=== PATIENT | female | born 1990 | race Caucasian/White ===

== ENCOUNTER 2017-04-06 16:47 | Emergency (ER) | END 2017-04-06 23:14 | disposition home or self-care (01) ==

== ENCOUNTER 2017-06-17 19:29 | Emergency (ER) | END 2017-06-17 20:00 | disposition home or self-care (01) ==

== ENCOUNTER 2018-05-21 22:32 | Emergency (ER) | payer OTHER ==
[~2018-05-21] VITALS: Wt 71.6 kg
[~2018-05-21 22:32] MED LIST: BACI28.34 TOP; FIORICET PO; HC30CR25 TOP; NAPR-985 PO; ONDA4TAB8 PO
[2018-05-21 22:46] VITALS: BP 128/88; PULSE 77; RESP 18
[2018-05-21] MEDS ORDERED: ACETAMINOPHEN 325 MG TAB PO ONE (23:00)
[2018-05-21] MEDS ORDERED: DEXAMETHASONE 4 MG TAB PO ONE (23:00)
[2018-05-21] MEDS ORDERED: D-ME473S2 PO (23:18)
[2018-05-21] MEDS ORDERED: IBUP-1542 PO (23:18)
[2018-05-21] MEDS ORDERED: AMOX500C2 PO (23:18)
--- NOTE | 2018-05-21 23:20 | ERD ---
ER Documentation Chief Complaint Chief Complaint R EAR PAIN, THROAT PAIN X'S 20 DAYS HPI 28-year-old female presents with a 2-week history of sore throat and bilateral ear pain. She may have had tactile fevers but no measured temperature. She denies significant cough, vomiting, chest pain, additional symptoms. ROS All systems reviewed and are negative except as per history of present illness. Medications Home Meds Active Scripts Ibuprofen* (Motrin*) 600 Mg Tab, 600 MG PO Q6, #15 TAB Prov:CAMRON RHODES MD 05/21/18 Dextromethorphan Hb-Promethazine Hcl* (Promethazine DM* Syrup) 473 Ml Syrup, 5 ML PO Q6 PRN for COUGH for 5 Days, ML Prov:CAMRON RHODES MD 05/21/18 Amoxicillin* (Amoxicillin*) 500 Mg Cap, 500 MG PO TID for 10 Days, CAP Prov:CAMRON RHODES MD 05/21/18 Bacitracin* (Bacitracin Zinc Oint*) 28.35 Gm Oint, 1 APPLIC TOP BID, #1 TUB APPLI TO Prov:NAVI VARGAS PA-C 06/17/17 Hydrocortisone* Topical (Hydrocortisone* Topical) 2.5%-28.3 Gm Cream..g., 1 APPLIC TOP BID, #1 TUB Prov:NAVI VARGAS PA-C 06/17/17 Naproxen* (Naprosyn*) 500 Mg Tablet, 500 MG PO BID PRN for PAIN AND/OR INFLAMMATION, #30 TAB Prov:JESSA CIFUENTES PA-C 04/06/17 Ondansetron Hcl* (Zofran*) 4 Mg Tablet, 4 MG PO Q6H for NAUSEA AND/OR VOMITING, #30 TAB Prov:JESSA CIFUENTES PA-C 04/06/17 Acetamin/Butalbital/Caffeine* (Fioricet*) [id number] Tab, 1 TAB PO Q6H PRN for PAIN, #30 TAB Prov:JESSA CIFUENTES PA-C 04/06/17 Allergies Allergies: Coded Allergies: No Known Drug Allergies (Verified Allergy, Unknown, 12/25/15) PMhx/Soc Medical and Surgical Hx: pt denies Medical Hx History of Surgery: Yes (APPENDECTOMY, TUBAL LIGATION) Anesthesia Reaction: No Hx Neurological Disorder: No Hx Respiratory Disorders: No Hx Cardiac Disorders: No Hx Psychiatric Problems: No Hx Miscellaneous Medical Probl: No Hx Alcohol Use: No Hx Substance Use: No Hx Tobacco Use: No FmHx Family History: No diabetes, No coronary disease, No other Physical Exam Vitals Vital Signs Date Temp Pulse Resp B/P (MAP) Pulse Ox O2 O2 Flow FiO2 Time Delivery Rate 05/21/18 98.4 77 18 128/88 98 22:46 (101) Physical Exam Const: No acute distress Head: Atraumatic Eyes: Normal Conjunctiva ENT: Normal External Ears, Nose and Mouth. 3+ with erythema but no exudate. Uvula midline. Tender anterior cervical lymph nodes. TMs normal. No mastoid tenderness. Neck: Full range of motion. No meningismus. Resp: Clear to auscultation bilaterally Cardio: Regular rate and rhythm, no murmurs Abd: Soft, non tender, non distended. Normal bowel sounds Skin: No petechiae or rashes Back: No midline or flank tenderness Ext: No cyanosis, or edema Neur: Awake and alert Psych: Normal Mood and Affect Results 24 hrs Current Medications Medications Dose Sig/Rosana Start Time Status Last (Trade) Ordered Route PRN Stop Time Admin Dose Reason Admin 650 mg ONCE ONCE 05/21/18 DC 05/21/18 Acetaminophen PO 23:00 05/21/18 23:14 (Tylenol 23:01 Tab) 8 mg ONCE ONCE 05/21/18 DC 05/21/18 Dexamethasone PO 23:00 05/21/18 23:13 (Decadron) 23:01 Procedures/MDM Patient presents with sore throat lymphadenitis. Given the duration will treat with 1 dose Decadron, amoxicillin, ibuprofen, primary care follow-up and return precautions. The patient was stable with no new complaints during the ER course. Clinically, there is no current evidence to suggest meningitis, sepsis, acute abdomen, pneumonia, stroke, acute coronary syndrome, pulmonary embolism, aortic dissection or any other emergent condition appearing to require further evaluation or hospitalization. Patient counseled regarding my diagnostic impre ssion and care plan. Prior to discharge all questions answered. Pt agrees with treatment plan and understands strict return precautions. Pt is instructed to follow up with primary care provider within 24-48 hours. Precautionary instructions provided including instructions to return to the ER if not improving or for any worsening or changing symptoms or concerns. There is no evidence of airway obstruction or abscess. Departure Diagnosis: Primary Impression: URI, acute Condition: Stable Patient Instructions: Lymphangitis, Pharyngitis, Strep (Presumed) Additional Instructions: Recheck for new or worsening symptoms her primary care doctor. CAMRON RHODES MD May 21, 2018 23:20
== END 2018-05-22 00:58 | disposition home or self-care (01) ==
LOC: FTE 22:32
DX: J06.9 Acute upper respiratory infection, unspecified (principal)
CPT/HCPCS: Z7502; Z7610; 99283

== ENCOUNTER 2018-10-24 03:52 | Emergency (ER) | payer OTHER ==
[~2018-10-24] VITALS: Ht 160 cm; Wt 68.7 kg
[~2018-10-24 03:52] MED LIST changes: +AMOX500C2 PO; +AZIT250T PO; +BENZ-6 PO; +D-ME473S2 PO; +IBUP-1542 PO
[2018-10-24 03:53] VITALS: BP 97/56; PULSE 79; RESP 18; Ht 160 cm; Wt 68.7 kg
[2018-10-24] MEDS ORDERED: ALBUTEROL 0.083% (NEB) 2.5 MG/3 ML AMP NEB STA (04:11)
[2018-10-24] MEDS ORDERED: IPRATROPIUM (NEB) 0.5 MG/2.5 ML AMP NEB STA (04:11)
--- NOTE | 2018-10-24 04:18 | ERD ---
ER Documentation Chief Complaint Chief Complaint COUGH WITH CWP [id number] HPI Patient is a 28-year-old female, no past medical history, presents the ER for concerns of a cough for the last 10 days. Patient states cough is dry in nature. Patient denies any shortness of breath. She states she occasionally has chest pain with coughing only. Patient denies any chest pain at rest. Patient denies any radiation of pain. Patient denies any nausea, vomiting, fevers, chills, abdominal pain or LOC. Patient states she tried numerous [id number] cough syrups with no alleviation of symptoms. Patient states presents the ER as she was unable to sleep throughout the night secondary to coughing. ROS All systems reviewed and are negative except as per history of present illness. Medications Home Meds Active Scripts Dextromethorphan Hb-Promethazine Hcl* (Promethazine DM* Syrup) 473 Ml Syrup, 5 ML PO Q6 PRN for COUGH, #4 OZ Prov:TOYA LU PA-C 10/24/18 Azithromycin* (Zithromax*) 250 Mg Tablet, 250 MG PO .ZPACK DIRECTED, #6 TAB TAKE 500 MG (2 TABS) THE FIRST DAY THEN 250 MG (1 TAB) DAYS 2-5 Prov:TOYA LU PA-C 10/24/18 Benzonatate* (Tessalon Perle*) 100 Mg Capsule, 100 MG PO Q8H PRN for COUGH, #30 CAP Prov:TOYA LU PA-C 10/24/18 Ibuprofen* (Motrin*) 600 Mg Tab, 600 MG PO Q6, #15 TAB Prov:CAMRON RHODES MD 05/21/18 Dextromethorphan Hb-Promethazine Hcl* (Promethazine DM* Syrup) 473 Ml Syrup, 5 ML PO Q6 PRN for COUGH for 5 Days, ML Prov:CAMRON RHODES MD 05/21/18 Amoxicillin* (Amoxicillin*) 500 Mg Cap, 500 MG PO TID for 10 Days, CAP Prov:CAMRON RHODES MD 05/21/18 Bacitracin* (Bacitracin Zinc Oint*) 28.35 Gm Oint, 1 APPLIC TOP BID, #1 TUB APPLI TO Prov:NAVI VARGAS PA-C 06/17/17 Hydrocortisone* Topical (Hydrocortisone* Topical) 2.5%-28.3 Gm Cream..g., 1 APPLIC TOP BID, #1 TUB Prov:NAVI VARGAS PA-C 06/17/17 Naproxen* (Naprosyn*) 500 Mg Tablet, 500 MG PO BID PRN for PAIN AND/OR INFLAMMATION, #30 TAB Prov:JESSA CIFUENTES PA-C 04/06/17 Ondansetron Hcl* (Zofran*) 4 Mg Tablet, 4 MG PO Q6H for NAUSEA AND/OR VOMITING, #30 TAB Prov:JESSA CIFUENTES PA-C 04/06/17 Acetamin/Butalbital/Caffeine* (Fioricet*) [id number] Tab, 1 TAB PO Q6H PRN for PAIN, #30 TAB Prov:JESSA CIFUENTES PA-C 04/06/17 Allergies Allergies: Coded Allergies: No Known Drug Allergies (Verified Allergy, Unknown, 12/25/15) PMhx/Soc History of Surgery: Yes (APPENDECTOMY, TUBAL LIGATION) Anesthesia Reaction: No Hx Neurological Disorder: No Hx Respiratory Disorders: No Hx Cardiac Disorders: No Hx Psychiatric Problems: No Hx Miscellaneous Medical Probl: No Hx Alcohol Use: No Hx Substance Use: No Hx Tobacco Use: No FmHx Family History: No diabetes Physical Exam Vitals Vital Signs Date Temp Pulse Resp B/P (MAP) Pulse Ox O2 O2 Flow FiO2 Time Delivery Rate 10/24/18 61 20 97 21 04:24 10/24/18 98.5 79 18 97/56 (70) 97 03:53 Physical Exam GENERAL: Well-developed, well-nourished female. Appears in no acute distress. HEAD: Normocephalic, atraumatic. No deformities or ecchymosis. EYE: Pupils equal, round, and reactive to light. EOMs intact. No conjunctival erythema. No eye discharge. ENT: External ear without any masses or tenderness. TM visualized bilaterally, non-erythematous, non-bulging. Nasal mucosa pink with no discharge. Oropharynx is pink without any tonsillar erythema or exudates. No uvula deviation. No kissing tonsils. NECK: Supple. No meningismus. Normal ROM of the neck. LUNG: Actively coughing, dry in nature. No abdominal retractions, nasal fla ring, no tripoding. HEART: Regular rate and rhythm. No murmurs, rubs or gallops. CHEST WALL: Bilateral anterior chest wall tender to palpation. Pain is reproducible. EXTREMITES: Equal pulses bilaterally. No peripheral clubbing, cyanosis or edema. No unilateral leg swelling. NEUROLOGIC: Alert and oriented to person, place and time. Moving all four extremities. 5/5 strength in all extremities. Normal speech. Steady gait. SKIN: Normal color. Warm and dry. No rashes or lesions. Results 24 hrs Current Medications Medications Dose Sig/Rosana Start Time Status Last (Trade) Ordered Route PRN Stop Time Admin Dose Reason Admin Albuterol 5 mg ONCE STAT 10/24/18 DC 10/24/18 (Proventil NEB 04:11 04:24 0.083% (Neb)) 10/24/18 04:12 Ipratropium 0.5 mg ONCE STAT 10/24/18 DC 10/24/18 Volborg NEB 04:11 04:23 (Atrovent 10/24/18 04:12 0.02% (Neb)) Procedures/MDM MEDICAL DECISION MAKING: This is a 28-year-old female presents ER for concerns of intermittent cough and chest wall pain for last 10 days. Patient was afebrile. Patient was not hypoxic. Patient denied recent travel. Cardiac exam was normal. Lung exam revealed normal breath sounds however patient had an active dry cough. Patient was given single breathing treatment. Patient had improvement in lung sounds there was no longer coughing prior to discharge.. Patient had no abdominal retractions, nasal flaring, no tripoding throughout the ED course. O2 sat was within normal limits. At this time, the patient's presentation is most consistent with acute bronchitis. Trial of antibiotic's were given as patient's states she is tried numerous [id number] medications with minimal alleviation of symptoms. Low suspicion for aortic dissection, acute coronary syndrome, pneumothorax, pneumonia, TB, influenza, pertussis, GERD, allergic rhinitis. Patient was nontoxic, [id number] prior to discharge. PRESCRIPTIONS: Tessalon Perles, azithromycin, promethazine cough syrup DISCHARGE: At this time, patient is stable for discharge and outpatient management. I have instructed the patient to follow-up with his/her primary care physician in 1-2 days. If symptoms persist, patient may need to see a specialist for further examinations and testing. I have instructed the patient to promptly return to the ER at any time for any new or worsening symptoms including increased increased pain, fever, nausea, vomiting, numbness, shortness of breath, weakness, ongoing wheezing, retractions or LOC. The patient and/or family expressed understanding of and agreement with this plan. All questions were answered. Home care instructions were provided. Disclaimer: Inadvertent spelling and grammatical errors are likely due to EHR/dictation software use and do not reflect on the overall quality of patient care. Also, please note that the electronic time recorded on this note does not necessarily reflect the actual time of the patient encounter. Departure Diagnosis: Primary Impression: Bronchitis Condition: Fair Patient Instructions: Bronchitis, Antiobiotic Treatment (Adult) Additional Instructions: Call your primary care doctor TOMORROW for an appointment during the next 1-2 days.See the doctor sooner or return here if your condition worsens before your appointment time. TOYA LU PA-C Oct 24, 2018 04:18
== END 2018-10-24 05:30 | disposition home or self-care (01) ==
LOC: FTE 03:52
DX: J40 Bronchitis, not specified as acute or chronic (principal)
CPT/HCPCS: 94664; Z7502; Z7610

== ENCOUNTER 2018-11-13 23:45 | Emergency (ER) | payer OTHER ==
[~2018-11-13] VITALS: Ht 160 cm; Wt 65.0 kg
[~2018-11-13 23:45] MED LIST changes: +CIPR500T4 PO
[2018-11-13 23:48] VITALS: BP 103/67; PULSE 82; RESP 16; Ht 160 cm; Wt 65.0 kg
[2018-11-14] MEDS ORDERED: KETOROLAC 30 MG INJ IM STA (01:07)
[2018-11-14] MEDS ORDERED: HYDROCODONE/APAP (5/325) TAB PO ONE (01:30)
== END 2018-11-14 02:38 | disposition home or self-care (01) ==
LOC: FTE 23:45
DX: N12 Tubulo-interstitial nephritis, not specified as acute or chronic (principal)
CPT/HCPCS: 76775; 80048; 81001; 81025; 85025; 96372; J1885; Z7502; Z7610